=== PATIENT | female | born 1945 | race Caucasian/White ===

== ENCOUNTER 2017-02-18 12:41 | Emergency (ER) | payer MEDICARE, BC ==
[~2017-02-18] VITALS: Ht 160 cm; Wt 80.9 kg
[~2017-02-18 12:41] MED LIST: ALDACTONE 25MG25 M1 PO; ASPI325T6 PO; ASPIRIN 32325 MG/TAB PO; ASPIRIN 81M81 MG/TA2; ASPIRIN 81M81 MG/TA2 PO; BACTRIM 400 MG-1 TAB; BACTRIM DS 8001 TAB PO; CORDARONE200 MG/TAB PO; DECARA PO; DIOVAN HCT 25 M1 TAB PO; ELITE MAGNESIUM1 TAB PO; EPI EZ PEN1 MG/ML IM; EPIPEN1 MG/ML INJ; HCTZ 25MG TAB25 MG PO; HYZAAR 50-12.1 UDTAB PO; KLOR-CON 1010 MEQ PO; LASIX 20MG TABL20 MG PO; LASIX 40MG TABL40 MG PO; LIPITOR 10MG10 MG PO; LOPRESSOR 550 MG/TAB PO; LOPRESSOR100 MG PO; METOPROLOL100 MG PO; MICRO-K 1010 MEQ PO; NO HOME MEDICATIONS; NORCO 325 MG-51 TAB PO; NORCO 325 MG-7.1 TAB PO; NORVASC 10MG10 MG PO; PERCOCET 325 MG1 TA2 PO; POTASSIUM20 MEQ PO; PRADAXA 150MG150 MG PO; PREDNISONE20 MG PO; PRILOTC PO; PRINZIDE 12.5 M1 TAB PO; PROAIR HFA0.09 MG/AC IH; PULMICORT180 MCG/Ac IH; TYLENOL 325MG325 MG PO; VALIUM 2MG T2 MG/TAB PO; VASERETIC 10 MG1 TAB PO; VITAMIN D 50,1.25 MG PO; ZOCOR 40MG40 MG PO
[2017-02-18 12:42] VITALS: PULSE 71; TEMP 98.2
[2017-02-18] MEDS ORDERED: TOPROL XL 25MG25 MG PO (12:53)
[2017-02-18] MEDS ORDERED: NORCO 325 MG-51 TAB PO (14:10)
[2017-02-18 14:54] VITALS: BP 130/61
== END 2017-02-18 14:56 | disposition home or self-care (01) ==
LOC: COL.ER 12:41
DX: S80.02XA Contusion of left knee, initial encounter (principal); S86.912A Strain of unspecified muscle(s) and tendon(s) at lower leg level, left leg, initial encounter; W19.XXXA Unspecified fall, initial encounter; I48.91 Unspecified atrial fibrillation; I50.9 Heart failure, unspecified; Z87.891 Personal history of nicotine dependence

== ENCOUNTER 2018-02-12 12:04 | Day surgery (SDC) | payer MEDICARE, BC ==
[~2018-02-12] VITALS: Ht 160 cm; Wt 87.2 kg
[~2018-02-12 12:04] MED LIST changes: +TOPROL XL 25MG25 MG PO
[2018-02-12 12:24] VITALS: BP 119/69; PULSE 63; TEMP 98.2
[2018-02-12] MEDS ORDERED: K-TAB10 PO (12:53)
[2018-02-12] MEDS ORDERED: CORDARONE200 MG/TAB PO (12:54)
[2018-02-12] MEDS ORDERED: LOPRESSOR 225 MG/TAB PO (12:54)
[2018-02-12] MEDS ORDERED: LIPITOR 10MG10 MG PO (12:55)
[2018-02-12] MEDS ORDERED: LASIX 40MG TABL40 MG PO (12:55)
[2018-02-12] MEDS ORDERED: ALDACTONE 25MG25 M1 PO (12:56)
[2018-02-12] MEDS ORDERED: PRADAXA 150MG150 MG PO (12:56)
[2018-02-12] MEDS ORDERED: ASPIRIN 81M81 MG/TA2 PO (12:57)
[2018-02-12] MEDS ORDERED: CRANBERRY FRUI405 MG PO (12:58)
[2018-02-12] MEDS ORDERED: PULMICORT90 MCG/Act IH (12:58)
[2018-02-12] MEDS ORDERED: EPI-PEN JR0.5 MG/ML IM (13:00)
[2018-02-12 14:45] VITALS: BP 131/78; PULSE 59; TEMP 97.8
[2018-02-12 15:00] VITALS: BP 154/73; PULSE 57
[2018-02-12 15:15] VITALS: BP 174/77; PULSE 57
[2018-02-12 15:30] VITALS: BP 177/73; PULSE 58
== END 2018-02-12 15:44 | disposition home or self-care (01) ==
LOC: SDCO 12:04
DX: K63.5 Polyp of colon (principal); K29.30 Chronic superficial gastritis without bleeding; K31.7 Polyp of stomach and duodenum; I11.0 Hypertensive heart disease with heart failure; I50.9 Heart failure, unspecified; J45.909 Unspecified asthma, uncomplicated; E78.00 Pure hypercholesterolemia, unspecified; Z79.82 Long term (current) use of aspirin; I25.10 Atherosclerotic heart disease of native coronary artery without angina pectoris; Z87.891 Personal history of nicotine dependence; G47.33 Obstructive sleep apnea (adult) (pediatric); I27.20 Pulmonary hypertension, unspecified; E66.9 Obesity, unspecified; Z68.33 Body mass index [BMI] 33.0-33.9, adult; M19.90 Unspecified osteoarthritis, unspecified site; I07.1 Rheumatic tricuspid insufficiency; F41.9 Anxiety disorder, unspecified
CPT/HCPCS: OP; J2704; J7030

== ENCOUNTER → 2018-07-25 | Outpatient (CLI) | payer MEDICARE, BC ==
[~2018-07-25] MED LIST changes: +CRANBERRY FRUI405 MG PO; +EPI-PEN JR0.5 MG/ML IM; +K-TAB10 PO; +LOPRESSOR 225 MG/TAB PO; +PULMICORT90 MCG/Act IH
== END ==
LOC: COL.RAD 08:00
DX: M79.645 Pain in left finger(s) (principal); M25.532 Pain in left wrist
CPT/HCPCS: J3301; Q9967

== ENCOUNTER 2018-10-15 08:30 | Day surgery (SDC) | payer MEDICARE, BC ==
[~2018-10-15] VITALS: Ht 160 cm; Wt 85.4 kg
[2018-10-15 09:08] VITALS: BP 166/62; PULSE 67; TEMP 97.7
[2018-10-15 09:33] LABS: POTASSIUM 4.6 mmol/L (3.4-5.0)
[2018-10-15] MEDS ORDERED: CEPHALEXIN500 M1 PO (10:16)
[2018-10-15 10:17] LABS: THYROID STIMULATING HORMONE < 0.015 uIU/mL (0.465-4.680)
[2018-10-15 10:30] VITALS: BP 117/45; PULSE 66; TEMP 97.7
[2018-10-15 10:45] VITALS: BP 117/43; PULSE 64; TEMP 97.8
[2018-10-15 11:00] VITALS: BP 114/38; PULSE 65; TEMP 98
[2018-10-15 11:15] VITALS: BP 118/47; PULSE 64; TEMP 97.7
[2018-10-15 11:45] VITALS: BP 129/42; PULSE 64; TEMP 97.8
== END 2018-10-15 15:10 | disposition home or self-care (01) ==
LOC: COL.CAR 08:30
PROVIDERS: Internal Medicine Cardiovascular Disease
DX: I48.0 Paroxysmal atrial fibrillation (principal); I27.20 Pulmonary hypertension, unspecified; I25.10 Atherosclerotic heart disease of native coronary artery without angina pectoris; I10 Essential (primary) hypertension; E78.5 Hyperlipidemia, unspecified; G47.33 Obstructive sleep apnea (adult) (pediatric); F10.21 Alcohol dependence, in remission; J44.9 Chronic obstructive pulmonary disease, unspecified; R09.02 Hypoxemia; G90.01 Carotid sinus syncope; E66.9 Obesity, unspecified; I07.1 Rheumatic tricuspid insufficiency; I31.3 Pericardial effusion (noninflammatory); Z90.710 Acquired absence of both cervix and uterus; Z99.81 Dependence on supplemental oxygen; Z90.49 Acquired absence of other specified parts of digestive tract; Z88.1 Allergy status to other antibiotic agents; Z79.82 Long term (current) use of aspirin; Z80.9 Family history of malignant neoplasm, unspecified; Z82.49 Family history of ischemic heart disease and other diseases of the circulatory system; Z87.891 Personal history of nicotine dependence; Z68.31 Body mass index [BMI] 31.0-31.9, adult

== ENCOUNTER 2018-11-19 08:42 | Inpatient (IN) | payer MEDICARE, BC ==
[~2018-11-19 08:42] MED LIST changes: +CEPHALEXIN500 M1 PO
[2018-11-19] MEDS ORDERED: NATURAL IRON65 MG PO (09:10)
[2018-11-19] MEDS ORDERED: MULTIPLE VITAMI1 TA5 PO (09:11)
[2018-11-19] MEDS ORDERED: B COMPLEX & B121 TAB PO (09:11)
[2018-11-19 09:13] VITALS: BP 136/48; PULSE 72; TEMP 97.4
--- NOTE | 2018-11-19 10:00 | NUR ---
Arrived to the room at this time. No pain or chest pain at present. at the bedside. The patient was oriented to the room. Telemetry placed and IV started. EKG order called to Cardiopulmonary. Arrived to the room at this time.
--- NOTE | 2018-11-19 10:15 | NUR ---
Lab here for now orders. Vitals obtained and intial assessment completed.
[2018-11-19 11:01] LABS: BASO % 0.4 % (0.0-2.0); EOS # 0.1 (0.0-0.7); EOS % 0.6 % (0-4.0); GRAN # 7.3 (1.4-6.5); GRAN % 67.1 % (42.2-75.2); HEMATOCRIT 39.3 % (37.0-47.0); HEMOGLOBIN 13.3 g/dl (12.5-16.0); LYMPH # 2.4 (1.2-3.4); LYMPH % 21.9 % (20.0-51.0); MEAN CELL VOLUME 91 fl (80.0-100.0); MEAN CORPUSCULAR HEMOGLOBIN 31 pg (27.0-31.0); MEAN CORPUSCULAR HGB CONC 34 g/dl (33.0-37.0); MEAN PLATELET VOLUME 10.6 fl (7.4-10.4); MONO # 1.1 (0.1-0.6); MONO % 9.7 % (1.7-9.3); PLATELET COUNT 177 K/mm3 (130-400); RED BLOOD COUNT 4.32 M/mm3 (4.10-5.30); REDCELL DISTRIBUTION WIDTH-CV 13.9 % (11.5-14.5)
[2018-11-19 11:12] LABS: ALBUMIN 4.1 gm/dL (3.5-5.0); BILIRUBIN,TOTAL 1.1 mg/dL (0.0-1.0); CALCIUM 9.1 mg/dL (8.4-10.2); CREATININE, serum 0.7 mg/dL (0.52-1.25); INR 1.5 (0.8-3.0); MAGNESIUM 1.8 mg/dL (1.6-2.3); POTASSIUM 4.4 mmol/L (3.4-5.0); PROTHROMBIN TIME 17.4 SECONDS (9.7-12.8); TOTAL PROTEIN 7.1 gm/dL (6.4-8.2)
[2018-11-19 17:27] VITALS: BP 136/48; PULSE 72; TEMP 97.4
--- NOTE | 2018-11-19 19:11 | NUR ---
No change throughout the shift. The call light is in place. VANI Perales given report to resume care.
[2018-11-19 19:16] VITALS: BP 139/50; PULSE 60; TEMP 98.8
--- NOTE | 2018-11-19 22:00 | NUR ---
Resting in bed. Assessment complete. Lungs clear. Heart sounds normal. Bilateral lower leg edema +2. Right forearm abrasion, open to air, scabbed over. Reports from fence when letting dog out. Denies pain. Denies needs. Call light in reach.
[2018-11-19 22:58] VITALS: BP 114/63; PULSE 63; TEMP 98.3
--- NOTE | 2018-11-20 01:00 | NUR ---
Resting in bed. Call light in reach.
[2018-11-20 03:41] VITALS: BP 131/52; PULSE 63; TEMP 98.7
--- NOTE | 2018-11-20 06:02 | NUR ---
Resting in bed this AM. Uneventful night. Call light in reach.
[2018-11-20 07:21] VITALS: BP 145/49; PULSE 58; TEMP 98.2
[2018-11-20 07:51] LABS: BASO % 0.4 % (0.0-2.0); EOS # 0.1 (0.0-0.7); EOS % 1.2 % (0-4.0); GRAN # 4.5 (1.4-6.5); GRAN % 56.9 % (42.2-75.2); HEMATOCRIT 38.3 % (37.0-47.0); HEMOGLOBIN 12.2 g/dl (12.5-16.0); LYMPH # 2.6 (1.2-3.4); LYMPH % 32.7 % (20.0-51.0); MEAN CELL VOLUME 94 fl (80.0-100.0); MEAN CORPUSCULAR HEMOGLOBIN 30 pg (27.0-31.0); MEAN CORPUSCULAR HGB CONC 32 g/dl (33.0-37.0); MEAN PLATELET VOLUME 10.7 fl (7.4-10.4); MONO # 0.7 (0.1-0.6); MONO % 8.5 % (1.7-9.3); PLATELET COUNT 168 K/mm3 (130-400); RED BLOOD COUNT 4.07 M/mm3 (4.10-5.30); REDCELL DISTRIBUTION WIDTH-CV 13.9 % (11.5-14.5)
[2018-11-20 08:05] LABS: CALCIUM 9.1 mg/dL (8.4-10.2); CREATININE, serum 0.73 mg/dL (0.52-1.25); MAGNESIUM 1.9 mg/dL (1.6-2.3); POTASSIUM 3.9 mmol/L (3.4-5.0)
--- NOTE | 2018-11-20 10:04 | NUR ---
Patient is resting in bed, alert and talking on phone. Medications administered, requsted milk and crackers to take medications with. Did offer menu and offered assistance to order meal. Stated she could call for herself. Denies pain at this time.
--- NOTE | 2018-11-20 10:42 | NUR ---
FARIBA and SW student met with the patient to discuss discharge plan. The [place] [facility] with her ore trimmer, Oni. She reports independence with ADLs and does not use any DME. The patient's PCP is Dr. Heather Wick and she receives her medications at the [facility]. She reports no difficulties obtaining her meds. The patient does not have advanced directives and she was not interested in completing them at this time. The patient plans to return home with her ore trimmer upon discharge. No additional needs at this time.
[2018-11-20 10:53] VITALS: BP 130/48; PULSE 57; TEMP 97
--- NOTE | 2018-11-20 13:25 | NUR ---
First visit from the oil painter. No needs right now.
[2018-11-20 17:43] VITALS: BP 130/58; PULSE 64; TEMP 98.7
[2018-11-20 19:09] VITALS: BP 116/45; PULSE 69; TEMP 98.3
--- NOTE | 2018-11-20 19:19 | NUR ---
Patient had uneventful shift, no pain complaints, report given to VANI Briseno.
--- NOTE | 2018-11-20 19:42 | NUR ---
Sitting at bedside. Assessment complete. Lungs clear. Heart sounds normal. Bilateral lower leg edema +1. Pulses felt throughout. Abrasion to right forearm present. Scabbed over. Denies needs. Denies pain at this time. Call light in reach.
--- NOTE | 2018-11-20 23:27 | NUR ---
Resting in bed. Call light in reach.
[2018-11-20 23:57] VITALS: BP 119/63; PULSE 61; TEMP 99
[2018-11-21] VITALS (10 sets, daily range): BP systolic 106–147; BP diastolic 38–76; PULSE 59–92; TEMP 98.1–98.8
--- NOTE | 2018-11-21 04:31 | NUR ---
Resting in bed asleep. Call light in reach.
[2018-11-21 06:16] LABS: BASO % 0.4 % (0.0-2.0); EOS # 0.1 (0.0-0.7); EOS % 0.7 % (0-4.0); GRAN # 6.5 (1.4-6.5); GRAN % 66.3 % (42.2-75.2); HEMATOCRIT 39.8 % (37.0-47.0); LYMPH # 2.3 (1.2-3.4); LYMPH % 23.4 % (20.0-51.0); MEAN CELL VOLUME 93 fl (80.0-100.0); MEAN CORPUSCULAR HEMOGLOBIN 30 pg (27.0-31.0); MEAN CORPUSCULAR HGB CONC 33 g/dl (33.0-37.0); MEAN PLATELET VOLUME 10.7 fl (7.4-10.4); MONO # 0.9 (0.1-0.6); PLATELET COUNT 196 K/mm3 (130-400); RED BLOOD COUNT 4.27 M/mm3 (4.10-5.30); REDCELL DISTRIBUTION WIDTH-CV 13.8 % (11.5-14.5)
--- NOTE | 2018-11-21 06:19 | NUR ---
Uneventful night. Resting in bed this AM. Call light in reach.
[2018-11-21 06:33] LABS: CALCIUM 9.1 mg/dL (8.4-10.2); CREATININE, serum 0.77 mg/dL (0.52-1.25); MAGNESIUM 1.8 mg/dL (1.6-2.3); POTASSIUM 3.8 mmol/L (3.4-5.0)
[2018-11-21 08:31] LABS: INR 1.3 (0.8-3.0); PROTHROMBIN TIME 15.3 SECONDS (9.7-12.8)
--- NOTE | 2018-11-21 10:37 | NUR ---
Patient assessed. Denies having pain and discomfort. Voiced no needs. Held Aldactone per pre-op orders to hold diuretics the morning of cardioversion. Consent signed by patient. Voiced no questions or concerns at that time. Continues to be NPO for procedure. Daughter came in to visit after completing assessment. Given hospital gown to change into prior to procedure.
--- NOTE | 2018-11-21 13:00 | NUR ---
ALL MEDS GIVEN WITH VERBAL ORDER FROM MD. SEE MERGE FOR ADMIN TIMES.
--- NOTE | 2018-11-21 13:45 | NUR ---
Arrived back to floor at [facility] 1335. Sleepy at this time, but alert when spoken to. Denies having pain and discomfort at this time. Telemetry is connected.
[2018-11-21] MEDS ORDERED: BETAPACE 120MG120 MG PO (13:53)
--- NOTE | 2018-11-21 17:04 | NUR ---
Patient discharged at approximately 1640, accompanied by and daughter.
== END 2018-11-21 16:40 | disposition home or self-care (01) | DRG 310 ==
LOC: MEDICAL 08:42
PROVIDERS: Internal Medicine Cardiovascular Disease; ADMIT Internal Medicine Cardiovascular Disease
PROC: 5A2204Z Restoration of Cardiac Rhythm, Single (ICD-10-PCS; principal; 2018-11-21)
DX: I48.0 Paroxysmal atrial fibrillation (principal); I27.20 Pulmonary hypertension, unspecified; I10 Essential (primary) hypertension; I25.10 Atherosclerotic heart disease of native coronary artery without angina pectoris; G47.33 Obstructive sleep apnea (adult) (pediatric); I08.1 Rheumatic disorders of both mitral and tricuspid valves; Z85.828 Personal history of other malignant neoplasm of skin
CPT/HCPCS: J2250; J3010

== ENCOUNTER 2019-09-24 15:33 | Inpatient (IN) | payer MEDICARE, BC ==
[~2019-09-24] VITALS: Ht 154.9 cm; Wt 91.8 kg
[~2019-09-24 15:33] MED LIST changes: +B COMPLEX & B121 TAB PO; +BETAPACE 120MG120 MG PO; +MULTIPLE VITAMI1 TA5 PO; +NATURAL IRON65 MG PO; +TIKOSYN0.5 MG PO
[2019-09-24] MEDS ORDERED: ASPIRIN 81M81 MG/TA2 PO (15:53)
[2019-09-24] MEDS ORDERED: PULMICORT180 MCG/Ac IH (15:53)
[2019-09-24] MEDS ORDERED: CRANBERRY450 MG PO (15:54)
[2019-09-24 15:59] LABS: BASO # 0.1 (0.0-0.2); BASO % 0.5 % (0.0-2.0); EOS # 0.1 (0.0-0.7); EOS % 0.8 % (0-4.0); GRAN # 7.8 (1.4-6.5); GRAN % 70.3 % (42.2-75.2); HEMATOCRIT 41.8 % (37.0-47.0); LYMPH # 2.4 (1.2-3.4); LYMPH % 21.4 % (20.0-51.0); MEAN CELL VOLUME 99 fl (80.0-100.0); MEAN CORPUSCULAR HEMOGLOBIN 33 pg (27.0-31.0); MEAN CORPUSCULAR HGB CONC 34 g/dl (33.0-37.0); MEAN PLATELET VOLUME 10.2 fl (7.4-10.4); MONO # 0.7 (0.1-0.6); MONO % 6.6 % (1.7-9.3); PLATELET COUNT 182 K/mm3 (130-400); RED BLOOD COUNT 4.21 M/mm3 (4.10-5.30); REDCELL DISTRIBUTION WIDTH-CV 12.7 % (11.5-14.5)
[2019-09-24 16:13] LABS: ALANINE AMINOTRANSFERASE 39 U/L (9-52); ALBUMIN 4.5 gm/dL (3.5-5.0); ALKALINE PHOSPHATASE 128 U/L (50-136); ANION GAP 9 mmol/L (7-16); AST,SGOT 63 U/L (15-37); BILIRUBIN,TOTAL 0.8 mg/dL (0.0-1.0); BLOOD UREA NITROGEN 14 mg/dL (7-17); CALCIUM 9.1 mg/dL (8.4-10.2); CARBON DIOXIDE 26 mmol/L (22-30); CHLORIDE 103 mmol/L (98-107); CREATININE, serum 0.82 (0.52-1.25); GLUCOSE 99 mg/dL (74-106); MAGNESIUM 1.9 mg/dL (1.6-2.3); POTASSIUM 4.5 mmol/L (3.4-5.0); SODIUM 138 mmol/L (137-145); TOTAL PROTEIN 7.8 gm/dL (6.4-8.2)
[2019-09-24 16:27] LABS: TROPONIN-I < 0.012 ng/mL (0.000-0.035)
[2019-09-24 19:57] VITALS: BP 148/63; PULSE 79; TEMP 97.5
[2019-09-24] MEDS ORDERED: MAGNESIUM500 MG PO (22:13)
--- NOTE | 2019-09-24 22:39 | NUR ---
Assessment complete. Alert and oriented. Verbal, ambulatory, independent to self care. Denies any pain, discomfort or SOB at this time. Tele monitor in place, leads checked. INT to LAC patent, flushed, dressing with small amount of blood around hub, dressing changed, CDI. States on RA during the day and wears 3LO2 NC during sleep. Medications administered as ordered. Needs met. Call light within reach.
[2019-09-24 23:46] VITALS: BP 148/53; PULSE 88
[2019-09-25] VITALS (8 sets, daily range): BP systolic 99–135; BP diastolic 47–83; PULSE 64–112; TEMP 97.4–98.5
[2019-09-25 01:12] LABS: COLLECTION METHOD CLEAN CATCH
[2019-09-25 01:17] LABS: MUCOUS Present /lpf; PH 6 (5-8); SQUAMOUS EPITHELIAL 0-2 /hpf; URINE APPEARANCE Clear; URINE BACTERIA Rare /hpf; URINE BILIRUBIN Negative (NEGATIVE); URINE BLOOD Negative (NEGATIVE); URINE COLOR Yellow; URINE GLUCOSE Negative (NEGATIVE); URINE KETONE Negative (NEGATIVE); URINE LEUKOCYTE ESTERASE Trace (NEGATIVE); URINE NITRATE Negative (NEGATIVE); URINE PROTEIN(semi-quant) Negative (NEGATIVE); URINE RBC 0-2 /hpf; URINE UROBILINOGEN Negative (NEGATIVE)
--- NOTE | 2019-09-25 05:20 | NUR ---
Pt uneventful during this shift. call light within reach.
--- NOTE | 2019-09-25 07:08 | NUR ---
Report given to VANI Morocho.
[2019-09-25 09:13] LABS: BASO % 0.6 % (0.0-2.0); EOS # 0.1 (0.0-0.7); EOS % 1.4 % (0-4.0); GRAN # 4.8 (1.4-6.5); GRAN % 69.1 % (42.2-75.2); HEMATOCRIT 40.1 % (37.0-47.0); HEMOGLOBIN 13.1 g/dl (12.5-16.0); LYMPH # 1.5 (1.2-3.4); LYMPH % 21.9 % (20.0-51.0); MEAN CELL VOLUME 101 fl (80.0-100.0); MEAN CORPUSCULAR HEMOGLOBIN 33 pg (27.0-31.0); MEAN CORPUSCULAR HGB CONC 33 g/dl (33.0-37.0); MEAN PLATELET VOLUME 10.3 fl (7.4-10.4); MONO # 0.5 (0.1-0.6); MONO % 6.6 % (1.7-9.3); PLATELET COUNT 143 K/mm3 (130-400); RED BLOOD COUNT 3.96 M/mm3 (4.10-5.30); REDCELL DISTRIBUTION WIDTH-CV 12.8 % (11.5-14.5)
[2019-09-25 09:23] LABS: CALCIUM 8.7 mg/dL (8.4-10.2); CREATININE, serum 0.74 (0.52-1.25); POTASSIUM 4.2 mmol/L (3.4-5.0)
--- NOTE | 2019-09-25 10:50 | NUR ---
Patient is awake sitting on side of the bed. Is alert and oriented. Denies having any pain. Respirations are even and nonlabored. Call light and personal items are within reach.
--- NOTE | 2019-09-25 18:32 | NUR ---
Patient has been resting in bed. Son is at bedside. Denies pain. Call light and personal items are within reach.
--- NOTE | 2019-09-25 20:00 | NUR ---
Shift assessment complete. Patient in chair. Denies pain. States she has numbness/tingling in left foot. States it is chronic, and that her DrYokasta is aware. NSR on tele. IV in left arm flushed with NS, pt tolerated well. Denies further needs at this time. Will continue to monitor.
[2019-09-26] VITALS (7 sets, daily range): BP systolic 106–160; BP diastolic 31–76; PULSE 65–90; TEMP 97.2–98.2
--- NOTE | 2019-09-26 04:59 | NUR ---
Patient in bed, sleeping. Appears comfortable. Will continue to monitor.
--- NOTE | 2019-09-26 06:09 | NUR ---
Per monitor room tech, tele showing what appears to be Torsades, which according to the sterile supply technician, it happened very fast. Patient in bed, awake. States she feels fine. VS stable. Notified SAM Rosales. EKG and Mag level ordered. Per SAM Rosales, RN to call cardiology cardiology clinical consultant for further orders.
--- NOTE | 2019-09-26 06:31 | NUR ---
Updated Dr. Mejia on run of torsades on tele. Order to d/c tikosyn. SAM Rosales ordered 2g Mag IV. Mag being replaced now. Morning labs being drawn STAT. Per Dr. Spencer, place defib pads on, and move pt to the ICU. SAM Rosales notified by Eligio Mckeon RN. SAM Rosales at bedside, and will place transfer orders.
--- NOTE | 2019-09-26 06:37 | NUR ---
Dr. Spencer called this RN after viewing the patient's tele strip showing Torsade's and stated that "It is artifact. That patient can stay on the floor." Charge and warehouse packaging supervisor notified.
--- NOTE | 2019-09-26 06:41 | NUR ---
Per Dr. Spencer, he believes the "torsades" that was seen on the monitor was artifact. Order to restart tikosyn. Connie updated, tikosyn reordered. Patient updated. Mag IV infusing. Ok per Dr. Spencer and Connie, STAB SETTER AND DRILLER.
[2019-09-26 06:49] LABS: BASO # 0.1 (0.0-0.2); BASO % 0.6 % (0.0-2.0); EOS # 0.1 (0.0-0.7); EOS % 1.6 % (0-4.0); GRAN # 5.8 (1.4-6.5); GRAN % 65.2 % (42.2-75.2); HEMATOCRIT 44.5 % (37.0-47.0); HEMOGLOBIN 14.6 g/dl (12.5-16.0); LYMPH # 2.3 (1.2-3.4); LYMPH % 25.7 % (20.0-51.0); MEAN CELL VOLUME 101 fl (80.0-100.0); MEAN CORPUSCULAR HEMOGLOBIN 33 pg (27.0-31.0); MEAN CORPUSCULAR HGB CONC 33 g/dl (33.0-37.0); MEAN PLATELET VOLUME 10.4 fl (7.4-10.4); MONO # 0.6 (0.1-0.6); MONO % 6.7 % (1.7-9.3); PLATELET COUNT 178 K/mm3 (130-400); RED BLOOD COUNT 4.39 M/mm3 (4.10-5.30); REDCELL DISTRIBUTION WIDTH-CV 12.7 % (11.5-14.5)
[2019-09-26 07:01] LABS: CALCIUM 9.3 mg/dL (8.4-10.2); CREATININE, serum 0.82 (0.52-1.25); MAGNESIUM 1.9 mg/dL (1.6-2.3); POTASSIUM 4.2 mmol/L (3.4-5.0)
--- NOTE | 2019-09-26 08:00 | NUR ---
Patient is awake and alert sitting up in bed. Denies having pain. I curious regarding the time of her cardioversion, will contact provider regarding this. Did take medications with as little fluid as possible. Did decline to take diuretics this morning. Respirations are even and nonlabored. Call light and personal items are within reach.
--- NOTE | 2019-09-26 09:05 | NUR ---
SW met with the patient to discuss discharge plan. The patient [place] of [place] with her coordinate measuring machine programmer, Oni Tate (ph#[phone]). She reports independence with ADLs and has a cane, walker, wheelchair, and nocturnal oxygen from [facility]. The patient's PCP is was Dr. Heather Wick, but she states that she believes she was switched to Dr. Muna Lowery. She receives her medications at [facility] and she reports no difficulties obtaining her meds. The patient does not have advanced directives and she was not interested in completing them at this time. She states her next of kin would be her daughter, Giovanna Pham (ph#[phone]). The patient plans to return home with her coordinate measuring machine programmer upon discharge. No additional needs at this time.
--- NOTE | 2019-09-26 09:56 | NUR ---
Patient arrives to [facility] for cardioversion with anesthesia via WC with RN from medical floor. A/Ox4, transfers self to bed. Verified name and . Consent signed and on chart. Monitors applied. 1000 Anesthesia here and ready for procedure. Dr. Wayne notified. 1007 Dr. Wayne at bedside 1008 Time out complete, all parties in agreement. Patient identifies self and voices ok. 1010 Defib with 200 Joules x1. Converts to SR per Dr. Wayne.
--- NOTE | 2019-09-26 10:53 | NUR ---
Report called to Bailee LUDWIG. Will transfer patient back to her room shortly. 1105 Transfers self to wheelchair indepently. Transferred back to room 355 with S\O at side. Up to bathroom on arrival to room. Bailee LUDWIG aware patient back.
--- NOTE | 2019-09-26 11:15 | NUR ---
0935 PATIENT TRANSPORTED TO [facility] 15 FOR CARDIOVERSION. CONSENT OBTAINED FOR PROCEDURE. PATIENT HAS RETURNED TO FLOOR AT 1100 VIA WHEELCHAIR AND IS AWAKE AND ALERT IN ROOM. PROCEDURE REPORTED TO BE SUCCESSFUL AND PATIENT IS CURRENTLY IN NSR. WAS ASSISTED TO THE RESTROOM AND RETURNED TO BED INDEPENDENTLY. GAIT IS STEADY. CALL LIGHT AND PERSONAL ITEMS ARE WITHIN REACH.
--- NOTE | 2019-09-26 18:22 | NUR ---
Patient discharging home at this time. Discharge instructions taken to patient and she declined to review them. Personal belongings sent with patient. She states she has an appointment with her time study technologist at early next week. Patient left via private vehicle.
== END 2019-09-26 18:24 | disposition home or self-care (01) | DRG 310 ==
LOC: COL.ER 15:33 → MEDICAL 19:21
PROVIDERS: Emergency Medicine; Nurse Practitioner Family; ADMIT Student in an Organized Health Care Education/Training Program
PROC: 5A2204Z Restoration of Cardiac Rhythm, Single (ICD-10-PCS; principal; 2019-09-24)
DX: I48.0 Paroxysmal atrial fibrillation (principal); I25.10 Atherosclerotic heart disease of native coronary artery without angina pectoris; I10 Essential (primary) hypertension; I27.20 Pulmonary hypertension, unspecified; E78.5 Hyperlipidemia, unspecified; I65.29 Occlusion and stenosis of unspecified carotid artery; I07.1 Rheumatic tricuspid insufficiency; J44.9 Chronic obstructive pulmonary disease, unspecified; E66.9 Obesity, unspecified; G47.33 Obstructive sleep apnea (adult) (pediatric); Z79.01 Long term (current) use of anticoagulants; Z90.710 Acquired absence of both cervix and uterus; Z79.82 Long term (current) use of aspirin; Z90.49 Acquired absence of other specified parts of digestive tract; Z87.891 Personal history of nicotine dependence
CPT/HCPCS: 99222-AI; J2704; J3475

== ENCOUNTER 2019-12-01 10:41 | Day surgery (SDC) | payer MEDICARE, BC ==
[~2019-12-01] VITALS: Ht 154.9 cm; Wt 91.9 kg
[~2019-12-01 10:41] MED LIST changes: +CRANBERRY450 MG PO; +MAGNESIUM500 MG PO
--- NOTE | 2019-12-01 10:47 | NUR ---
PATIENT ARRIVES TO [facility]. SHE IS SETTLED AND CHANGED. DR. MAURO AWARE OF ARRIVAL. HE WILL BE IN SOON SO SPEAK TO HER.
[2019-12-01 11:00] VITALS: BP 134/56; PULSE 69; TEMP 97.9
[2019-12-01 11:03] VITALS: BP 134/56; PULSE 69; TEMP 97.9
--- NOTE | 2019-12-01 11:30 | NUR ---
PATIENT PREPPED FOR CARDIOVERSION. IV PLACED TO LEFT FOREARM. EKG COMPLETED. CONSENT SIGNED. DR. MAURO HAS ANSWERED ALL QUESTIONS.
[2019-12-01 11:33] LABS: INR 1.2 (0.8-3.0); PROTHROMBIN TIME 13.7 SECONDS (9.7-12.8)
[2019-12-01 11:36] LABS: PARTIAL THROMBOPLASTIN TIME 56.2 SECONDS (26.0-37.0)
[2019-12-01 11:42] LABS: HEMATOCRIT 41.6 % (37.0-47.0); HEMOGLOBIN 13.7 g/dl (12.5-16.0); MEAN CELL VOLUME 97 fl (80.0-100.0); MEAN CORPUSCULAR HEMOGLOBIN 32 pg (27.0-31.0); MEAN CORPUSCULAR HGB CONC 33 g/dl (33.0-37.0); MEAN PLATELET VOLUME 10.4 fl (7.4-10.4); PLATELET COUNT 189 K/mm3 (130-400); RED BLOOD COUNT 4.29 M/mm3 (4.10-5.30); REDCELL DISTRIBUTION WIDTH-CV 12.9 % (11.5-14.5)
[2019-12-01 11:57] LABS: CALCIUM 9.3 mg/dL (8.4-10.2); CREATININE, serum 0.71 (0.52-1.25); POTASSIUM 4.2 mmol/L (3.4-5.0)
--- NOTE | 2019-12-01 12:16 | NUR ---
PATIENT SHOCKED ONCE WITH 200 JOULES FOR CARDIOVERSION. SINUS RHYTHM AFTER CARDIOVERSION COMPLETE
[2019-12-01 12:28] LABS: THYROID STIMULATING HORMONE 2.5 uIU/mL (0.465-4.680)
[2019-12-01 12:35] VITALS: BP 116/61; PULSE 68
--- NOTE | 2019-12-01 12:35 | NUR ---
CARDIOVERSION COMPLETE. PATIENT AWAKE AND TALKING. VS WNL. IN SR ON TELEMETRY. WILL CONTINUE TO MONITOR.
[2019-12-01 12:50] VITALS: BP 116/52; PULSE 64
[2019-12-01 13:05] VITALS: BP 105/49; PULSE 63
[2019-12-01 13:20] VITALS: BP 118/54; PULSE 66
--- NOTE | 2019-12-01 14:09 | NUR ---
DISCHARGE PACKET AND FOLLOW UP APPOINTMENT REVIEWED WITH THE PATIENT. SHE IS INSTRUCTED NOT TO DRIVE FOR 24 HOURS D/T RECEIVING SEDATION FOR CARDIOVERSION. PATIENT VERBALIZES UNDERSTANDING. PATIENT TAKEN OUT TO CAR IN WHEELCHAIR WITH S/O TO DRIVE HER HOME.
== END 2019-12-01 14:00 | disposition home or self-care (01) ==
LOC: COL.CAR 10:41
PROVIDERS: Internal Medicine Cardiovascular Disease
DX: I48.0 Paroxysmal atrial fibrillation (principal); I10 Essential (primary) hypertension; I27.20 Pulmonary hypertension, unspecified; I25.10 Atherosclerotic heart disease of native coronary artery without angina pectoris; I07.1 Rheumatic tricuspid insufficiency; I65.21 Occlusion and stenosis of right carotid artery; G47.33 Obstructive sleep apnea (adult) (pediatric); J44.9 Chronic obstructive pulmonary disease, unspecified; E66.9 Obesity, unspecified; E78.2 Mixed hyperlipidemia; M19.90 Unspecified osteoarthritis, unspecified site; F41.9 Anxiety disorder, unspecified; Z79.01 Long term (current) use of anticoagulants; Z95.818 Presence of other cardiac implants and grafts; Z99.89 Dependence on other enabling machines and devices; Z79.82 Long term (current) use of aspirin; Z79.899 Other long term (current) drug therapy; Z85.038 Personal history of other malignant neoplasm of large intestine; Z90.710 Acquired absence of both cervix and uterus; Z68.34 Body mass index [BMI] 34.0-34.9, adult; Z90.49 Acquired absence of other specified parts of digestive tract; Z88.1 Allergy status to other antibiotic agents; Z82.49 Family history of ischemic heart disease and other diseases of the circulatory system; Z80.9 Family history of malignant neoplasm, unspecified
CPT/HCPCS: J2704; J7030

== ENCOUNTER → 2019-12-23 | Outpatient (CLI) | payer MEDICARE, BC | LOC: COL.RAD 13:36 | DX: M79.645 Pain in left finger(s) (principal) | CPT/HCPCS: J3301; Q9967 ==

== ENCOUNTER 2020-03-05 07:36 | Day surgery (SDC) | payer MEDICARE, BC ==
[~2020-03-05] VITALS: Ht 155 cm; Wt 90.0 kg
[2020-03-05 08:40] LABS: HEMATOCRIT 38.2 % (37.0-47.0); HEMOGLOBIN 12.7 g/dl (12.5-16.0); MEAN CELL VOLUME 94 fl (80.0-100.0); MEAN CORPUSCULAR HEMOGLOBIN 31 pg (27.0-31.0); MEAN CORPUSCULAR HGB CONC 33 g/dl (33.0-37.0); MEAN PLATELET VOLUME 10.4 fl (7.4-10.4); PLATELET COUNT 202 K/mm3 (130-400); RED BLOOD COUNT 4.06 M/mm3 (4.10-5.30); REDCELL DISTRIBUTION WIDTH-CV 13.2 % (11.5-14.5)
[2020-03-05] MEDS ORDERED: VITAMINC500CH (08:43)
[2020-03-05] MEDS ORDERED: VITAMIND3 5000 PO (08:44)
[2020-03-05 08:55] LABS: INR 1.3 (0.8-3.0); PROTHROMBIN TIME 14.5 SECONDS (9.7-12.8)
[2020-03-05 08:56] LABS: PARTIAL THROMBOPLASTIN TIME 69.9 SECONDS (26.0-37.0)
[2020-03-05 09:01] LABS: MAGNESIUM 2.1 mg/dL (1.6-2.3)
--- NOTE | 2020-03-05 09:30 | NUR ---
DR MAURO INTO SEE PT, PROCEDURE WAS CANCELLED. REVIEWED WITH PT DISCHARGE INST. ON NEXT APPT, NO NEW MED CHANGES WITH VERBAL UNDERSTANDING. IV D'CD INTACT. PT IS UP IN ROOM WAITING ON RIDE
[2020-03-05 09:44] LABS: THYROID STIMULATING HORMONE 3.34 uIU/mL (0.465-4.680)
[2020-03-05 09:51] VITALS: BP 123/52; PULSE 65; TEMP 97.7
== END 2020-03-05 10:00 | disposition home or self-care (01) ==
LOC: COL.CAR 07:36
PROVIDERS: Internal Medicine Cardiovascular Disease
DX: I48.0 Paroxysmal atrial fibrillation (principal); F10.20 Alcohol dependence, uncomplicated; I25.10 Atherosclerotic heart disease of native coronary artery without angina pectoris; J44.9 Chronic obstructive pulmonary disease, unspecified; I10 Essential (primary) hypertension; E66.9 Obesity, unspecified; G47.33 Obstructive sleep apnea (adult) (pediatric); R09.02 Hypoxemia; E78.2 Mixed hyperlipidemia; I27.20 Pulmonary hypertension, unspecified; I07.1 Rheumatic tricuspid insufficiency; F41.9 Anxiety disorder, unspecified; I31.3 Pericardial effusion (noninflammatory); M19.90 Unspecified osteoarthritis, unspecified site; Z90.49 Acquired absence of other specified parts of digestive tract; Z90.710 Acquired absence of both cervix and uterus; Z88.1 Allergy status to other antibiotic agents; Z91.048 Other nonmedicinal substance allergy status; Z79.82 Long term (current) use of aspirin; Z79.01 Long term (current) use of anticoagulants; Z87.891 Personal history of nicotine dependence; Z85.038 Personal history of other malignant neoplasm of large intestine
CPT/HCPCS: J7030

== ENCOUNTER → 2020-05-10 | Outpatient (CLI) | payer MEDICARE, BC ==
[~2020-05-10] MED LIST changes: +VITAMINC500CH; +VITAMIND3 5000 PO
== END ==
LOC: MC.RAD 11:15
DX: N63.10 Unspecified lump in the right breast, unspecified quadrant (principal); N63.21 Unspecified lump in the left breast, upper outer quadrant

== ENCOUNTER → 2020-05-12 | Outpatient (CLI) | payer MEDICARE, BC | LOC: MC.RAD 10:19 | DX: N63.20 Unspecified lump in the left breast, unspecified quadrant (principal); Z98.82 Breast implant status | CPT/HCPCS: 30634 ==

== ENCOUNTER 2020-06-22 06:49 | Day surgery (SDC) | payer MEDICARE, BC ==
[2020-06-22] VITALS (9 sets, daily range): BP systolic 119–159; BP diastolic 45–73; PULSE 57–69; TEMP 97.3–97.8
[~2020-06-22] VITALS: Ht 157.5 cm; Wt 91.1 kg
[2020-06-22] MEDS ORDERED: CRANBERRY450 MG PO (08:38)
[2020-06-22] MEDS ORDERED: B-121000 MCG PO (08:42)
[2020-06-22] MEDS ORDERED: NORCO 325 MG-51 TAB PO (13:12)
== END 2020-06-22 17:55 | disposition home or self-care (01) ==
LOC: SDCO 06:49
DX: C50.412 Malignant neoplasm of upper-outer quadrant of left female breast (principal); C77.3 Secondary and unspecified malignant neoplasm of axilla and upper limb lymph nodes; Z17.0 Estrogen receptor positive status [ER+]; I48.0 Paroxysmal atrial fibrillation; D24.1 Benign neoplasm of right breast; E78.5 Hyperlipidemia, unspecified; I27.20 Pulmonary hypertension, unspecified; G47.33 Obstructive sleep apnea (adult) (pediatric); I25.10 Atherosclerotic heart disease of native coronary artery without angina pectoris; I13.0 Hypertensive heart and chronic kidney disease with heart failure and stage 1 through stage 4 chronic kidney disease, or unspecified chronic kidney disease; I50.9 Heart failure, unspecified; N18.3 Chronic kidney disease, stage 3 (moderate); J44.9 Chronic obstructive pulmonary disease, unspecified; E87.1 Hypo-osmolality and hyponatremia; E83.42 Hypomagnesemia; E11.9 Type 2 diabetes mellitus without complications; M19.90 Unspecified osteoarthritis, unspecified site; F41.9 Anxiety disorder, unspecified; Z79.82 Long term (current) use of aspirin; Z79.899 Other long term (current) drug therapy; Z90.710 Acquired absence of both cervix and uterus; Z90.49 Acquired absence of other specified parts of digestive tract; Z86.73 Personal history of transient ischemic attack (TIA), and cerebral infarction without residual deficits; Z20.828 Contact with and (suspected) exposure to other viral communicable diseases; Z85.828 Personal history of other malignant neoplasm of skin
CPT/HCPCS: A9541; J0690; J1100; J2270; J2405; J2704; J3010; J7120

== ENCOUNTER 2020-07-22 06:59 | Day surgery (SDC) | payer MEDICARE, BC ==
[2020-07-22] VITALS (7 sets, daily range): BP systolic 97–127; BP diastolic 43–90; PULSE 61–74; TEMP 98.6
[~2020-07-22] VITALS: Ht 157.5 cm; Wt 91.4 kg
[~2020-07-22 06:59] MED LIST changes: +B-121000 MCG PO
[2020-07-22 07:53] LABS: HEMATOCRIT 41.7 % (37.0-47.0); HEMOGLOBIN 13.9 g/dl (12.5-16.0); MEAN CELL VOLUME 91 fl (80.0-100.0); MEAN CORPUSCULAR HEMOGLOBIN 30 pg (27.0-31.0); MEAN CORPUSCULAR HGB CONC 33 g/dl (33.0-37.0); MEAN PLATELET VOLUME 10.5 fl (7.4-10.4); PLATELET COUNT 231 K/mm3 (130-400); RED BLOOD COUNT 4.57 M/mm3 (4.10-5.30)
[2020-07-22 08:03] LABS: INR 1.2 (0.8-3.0); PROTHROMBIN TIME 13.6 SECONDS (9.7-12.8)
[2020-07-22 08:03] LABS: CALCIUM 9.4 mg/dL (8.4-10.2); CREATININE, serum 0.96 (0.52-1.25); POTASSIUM 4.1 mmol/L (3.4-5.0)
[2020-07-22 08:06] LABS: PARTIAL THROMBOPLASTIN TIME 55.1 SECONDS (26.0-37.0)
[2020-07-22] MEDS ORDERED: PRADAXA 150MG150 MG PO (08:15)
[2020-07-22] MEDS ORDERED: TIKOSYN0.5 MG PO (08:18)
[2020-07-22] MEDS ORDERED: VITAMIN C500 MG PO (08:31)
[2020-07-22] MEDS ORDERED: MAG-OX 400400 MG/TAB PO (08:32)
[2020-07-22] MEDS ORDERED: TYLENOL 500MG500 MG PO (08:33)
[2020-07-22] MEDS ORDERED: PROAIR HFA0.09 MG/AC IH (08:33)
[2020-07-22] MEDS ORDERED: ARIMIDEX1 MG PO (08:34)
[2020-07-22 08:37] LABS: THYROID STIMULATING HORMONE 4.45 uIU/mL (0.465-4.680)
--- NOTE | 2020-07-22 10:50 | NUR ---
Discharge instructions given to pt.Pt verbalizes understanding.INT removed,catheter tip intact.Pt escorted out via wheelchair by this nurse.
== END 2020-07-22 11:44 | disposition home or self-care (01) ==
LOC: COL.CAR 06:59
PROVIDERS: Internal Medicine Cardiovascular Disease
DX: I48.0 Paroxysmal atrial fibrillation (principal); I27.20 Pulmonary hypertension, unspecified; Z79.01 Long term (current) use of anticoagulants; I25.10 Atherosclerotic heart disease of native coronary artery without angina pectoris; I65.21 Occlusion and stenosis of right carotid artery; I10 Essential (primary) hypertension; E78.2 Mixed hyperlipidemia; G47.33 Obstructive sleep apnea (adult) (pediatric); E66.9 Obesity, unspecified; Z68.36 Body mass index [BMI] 36.0-36.9, adult; F10.20 Alcohol dependence, uncomplicated; Z98.62 Peripheral vascular angioplasty status; Z86.79 Personal history of other diseases of the circulatory system; Z20.828 Contact with and (suspected) exposure to other viral communicable diseases; Z99.81 Dependence on supplemental oxygen; Z90.710 Acquired absence of both cervix and uterus; Z90.49 Acquired absence of other specified parts of digestive tract; Z88.1 Allergy status to other antibiotic agents; Z79.899 Other long term (current) drug therapy; Z79.82 Long term (current) use of aspirin; Z87.891 Personal history of nicotine dependence; Z95.818 Presence of other cardiac implants and grafts
CPT/HCPCS: J2704; J7030

== ENCOUNTER → 2020-10-15 | Day surgery (SDC) | payer MEDICARE, BC ==
[~2020-10-15] MED LIST changes: +ARIMIDEX1 MG PO; +MAG-OX 400400 MG/TAB PO; +TYLENOL 500MG500 MG PO; +VITAMIN C500 MG PO
== END ==
LOC: COL.CAR 08:00
DX: I48.91 Unspecified atrial fibrillation (principal); Z53.8 Procedure and treatment not carried out for other reasons

== ENCOUNTER → 2021-01-10 | Outpatient (CLI) | payer MEDICARE, BC ==
[~2021-01-10] MED LIST changes: +COMPLETE MULTI1 TAB PO; +ELDERBERRY PO; +EPIPEN 2-PAK1 MG/ML IM; +FLONASE NASAL S16 GM NS; +MASON NATURAL2000 IU PO; +SELENIUM200 MC5 PO; -TYLENOL 500MG500 MG PO; -VITAMIND3 5000 PO; +VTAMINC250TA PO; +ZINC LOZENGES1 LOZ PO
== END ==
LOC: MC.RAD 12:56
DX: Z98.890 Other specified postprocedural states (principal); Z85.3 Personal history of malignant neoplasm of breast

== ENCOUNTER 2021-02-18 06:50 | Day surgery (SDC) | payer MEDICARE, BC ==
[~2021-02-18] VITALS: Ht 157.5 cm; Wt 93.3 kg
[~2021-02-18 06:50] MED LIST changes: -COMPLETE MULTI1 TAB PO; -ELDERBERRY PO; -EPIPEN 2-PAK1 MG/ML IM; -FLONASE NASAL S16 GM NS; -SELENIUM200 MC5 PO; -VTAMINC250TA PO; -ZINC LOZENGES1 LOZ PO
[2021-02-18 08:13] VITALS: BP 120/56; PULSE 68; TEMP 98.7
[2021-02-18] MEDS ORDERED: EPIPEN 2-PAK1 MG/ML IM (08:41)
[2021-02-18] MEDS ORDERED: SELENIUM200 MC5 PO (08:42)
--- NOTE | 2021-02-18 09:09 | NUR ---
Per report pt in SR.Cardioversion cancelled
--- NOTE | 2021-02-18 09:17 | NUR ---
Discharge instructions given to pt.Pt verbalizes understanding.Pt escorted out by this nurse.
== END 2021-02-18 09:19 | disposition home or self-care (01) ==
LOC: COL.CAR 06:50
DX: I48.91 Unspecified atrial fibrillation (principal); Z88.1 Allergy status to other antibiotic agents; J44.9 Chronic obstructive pulmonary disease, unspecified; I25.10 Atherosclerotic heart disease of native coronary artery without angina pectoris; I11.0 Hypertensive heart disease with heart failure; I50.9 Heart failure, unspecified; G47.33 Obstructive sleep apnea (adult) (pediatric); F41.9 Anxiety disorder, unspecified; M19.90 Unspecified osteoarthritis, unspecified site; N18.30 Chronic kidney disease, stage 3 unspecified; Z85.3 Personal history of malignant neoplasm of breast; Z85.038 Personal history of other malignant neoplasm of large intestine; Z53.8 Procedure and treatment not carried out for other reasons
CPT/HCPCS: J2704

== ENCOUNTER → 2021-07-15 | Outpatient (CLI) | payer MEDICARE, BC ==
[~2021-07-15] MED LIST changes: +COMPLETE MULTI1 TAB PO; +ELDERBERRY PO; +EPIPEN 2-PAK1 MG/ML IM; +FLONASE NASAL S16 GM NS; +SELENIUM200 MC5 PO; +VTAMINC250TA PO; +ZINC LOZENGES1 LOZ PO
== END ==
LOC: MC.RAD 14:00
DX: C50.412 Malignant neoplasm of upper-outer quadrant of left female breast (principal); C73 Malignant neoplasm of thyroid gland; Z98.890 Other specified postprocedural states

== ENCOUNTER 2021-08-22 10:37 | Day surgery (SDC) | payer MEDICARE, BC ==
[~2021-08-22] VITALS: Ht 157.6 cm; Wt 94.3 kg
[~2021-08-22 10:37] MED LIST changes: -COMPLETE MULTI1 TAB PO; -ELDERBERRY PO; -FLONASE NASAL S16 GM NS; -VTAMINC250TA PO; -ZINC LOZENGES1 LOZ PO
[2021-08-22 11:49] LABS: HEMATOCRIT 43.8 % (37.0-47.0); MEAN CELL VOLUME 101 fl (80.0-100.0); MEAN CORPUSCULAR HEMOGLOBIN 32 pg (27.0-31.0); MEAN CORPUSCULAR HGB CONC 32 g/dl (33.0-37.0); MEAN PLATELET VOLUME 9.4 fl (7.4-10.4); PLATELET COUNT 187 K/mm3 (130-400); RED BLOOD COUNT 4.36 M/mm3 (4.10-5.30); REDCELL DISTRIBUTION WIDTH-CV 14.9 % (11.5-14.5)
[2021-08-22 11:57] VITALS: BP 141/62; PULSE 67; TEMP 98.1
[2021-08-22 11:58] LABS: INR 1.3 (0.8-3.0); PROTHROMBIN TIME 14.4 SECONDS (9.7-12.8)
[2021-08-22 12:01] LABS: PARTIAL THROMBOPLASTIN TIME 54.4 SECONDS (26.0-37.0)
[2021-08-22 12:25] LABS: CREATININE, serum 0.92 mg/dL (0.57-1.11); MAGNESIUM 2.3 mg/dL (1.6-2.6)
[2021-08-22] MEDS ORDERED: VTAMINC250TA PO (12:30)
[2021-08-22] MEDS ORDERED: CORDARONE200 MG/TAB PO ×2 (12:30→12:48)
[2021-08-22 12:35] LABS: POTASSIUM 4.5 mmol/L (3.5-4.5)
[2021-08-22] MEDS ORDERED: ZINC LOZENGES1 LOZ PO (12:35)
[2021-08-22] MEDS ORDERED: ELDERBERRY PO (12:36)
[2021-08-22] MEDS ORDERED: COMPLETE MULTI1 TAB PO (12:37)
[2021-08-22] MEDS ORDERED: FLONASE NASAL S16 GM NS (12:38)
[2021-08-22 13:13] LABS: THYROID STIMULATING HORMONE 2.322 uIU/mL (0.350-4.940)
[2021-08-22 13:15] VITALS: BP 117/47; PULSE 64
[2021-08-22 13:30] VITALS: BP 120/45; PULSE 66
[2021-08-22 13:45] VITALS: BP 123/34; PULSE 64
[2021-08-22 14:00] VITALS: BP 129/44; PULSE 60
--- NOTE | 2021-08-22 14:20 | NUR ---
Pt care was assumed at 1315 from Brenda LUDWIG. Pt has done well during her recovery, she has been able to drink juice and water with no problem. Pt remained in SR with 1st deg AVB on monitor after cardioversion. repeat EKG was obtained. Pt is wide awake now and is amb with steady gait. IV is dc'd with cath intact, dressing applied. Hydrocortisone cream was applied to skin when large patches were placed. Skin is not irritated now, but pt reports these areas will become very itchy. I reviewed dc/rx and fu istructions with patient and . no concerns at time of departure. Pt is escorted to exit via wheelchair.
== END 2021-08-22 16:22 | disposition home or self-care (01) ==
LOC: COL.CAR 10:37
PROVIDERS: Internal Medicine Cardiovascular Disease
DX: I48.0 Paroxysmal atrial fibrillation (principal); J44.9 Chronic obstructive pulmonary disease, unspecified; I25.10 Atherosclerotic heart disease of native coronary artery without angina pectoris; I65.29 Occlusion and stenosis of unspecified carotid artery; I08.1 Rheumatic disorders of both mitral and tricuspid valves; I50.9 Heart failure, unspecified; I11.0 Hypertensive heart disease with heart failure; K74.60 Unspecified cirrhosis of liver; E78.2 Mixed hyperlipidemia; E66.9 Obesity, unspecified; G47.33 Obstructive sleep apnea (adult) (pediatric); I27.20 Pulmonary hypertension, unspecified; Z68.36 Body mass index [BMI] 36.0-36.9, adult; Z95.818 Presence of other cardiac implants and grafts; Z99.89 Dependence on other enabling machines and devices; Z90.49 Acquired absence of other specified parts of digestive tract; Z79.01 Long term (current) use of anticoagulants; Z85.038 Personal history of other malignant neoplasm of large intestine; Z79.899 Other long term (current) drug therapy; Z87.891 Personal history of nicotine dependence; Z80.3 Family history of malignant neoplasm of breast
CPT/HCPCS: J2704; J7120

== ENCOUNTER 2021-11-10 07:32 | Day surgery (SDC) | payer MEDICARE, BC ==
[~2021-11-10] VITALS: Ht 157.5 cm; Wt 90.4 kg
[~2021-11-10 07:32] MED LIST changes: +COMPLETE MULTI1 TAB PO; +ELDERBERRY PO; +FLONASE NASAL S16 GM NS; +VTAMINC250TA PO; +ZINC LOZENGES1 LOZ PO
[2021-11-10 08:36] LABS: HEMATOCRIT 46.3 % (37.0-47.0); HEMOGLOBIN 15.4 g/dl (12.5-16.0); MEAN CELL VOLUME 96 fl (80.0-100.0); MEAN CORPUSCULAR HEMOGLOBIN 32 pg (27-31); MEAN CORPUSCULAR HGB CONC 33 g/dl (33.0-37.0); MEAN PLATELET VOLUME 9.4 fl (7.4-10.4); PLATELET COUNT 254 K/mm3 (130-400); RED BLOOD COUNT 4.81 M/mm3 (4.10-5.30); REDCELL DISTRIBUTION WIDTH-CV 13.7 % (11.5-14.5)
[2021-11-10 08:43] LABS: INR 1.5 (0.8-3.0); PROTHROMBIN TIME 16.5 SECONDS (9.7-12.8)
[2021-11-10 08:45] LABS: PARTIAL THROMBOPLASTIN TIME 74.7 SECONDS (26.0-37.0)
[2021-11-10 08:52] LABS: CALCIUM 9.5 mg/dL (8.4-10.2); CREATININE, serum 1.35 mg/dL (0.57-1.11); MAGNESIUM 1.9 mg/dL (1.6-2.6); POTASSIUM 4.7 mmol/L (3.5-4.5)
[2021-11-10] MEDS ORDERED: CORDARONE200 MG/TAB PO (08:54)
[2021-11-10] MEDS ORDERED: LOPRESSOR 550 MG/TAB PO (08:55)
[2021-11-10] MEDS ORDERED: PRADAXA 150MG150 MG PO (08:57)
[2021-11-10 09:12] LABS: THYROID STIMULATING HORMONE 4.977 uIU/mL (0.350-4.940)
[2021-11-10] MEDS ORDERED: VTAMINC250TA PO (09:12)
[2021-11-10] MEDS ORDERED: MAGNESIUM500 MG PO (09:13)
[2021-11-10 09:15] VITALS: BP 142/81; PULSE 62
[2021-11-10 09:18] VITALS: BP 131/48; PULSE 59; TEMP 98.2
[2021-11-10 09:20] VITALS: BP 124/81; PULSE 61
[2021-11-10 09:30] VITALS: BP 132/76; PULSE 61
[2021-11-10 09:45] VITALS: BP 136/81; PULSE 63
[2021-11-10 10:00] VITALS: BP 135/70; PULSE 62
--- NOTE | 2021-11-10 10:08 | NUR ---
Discharge instructions given to pt.Pt verbalizes understanding.INT removed,catheter tip intact.
== END 2021-11-10 11:03 ==
LOC: COL.CAR 07:32
PROVIDERS: Internal Medicine Cardiovascular Disease
DX: I48.0 Paroxysmal atrial fibrillation (principal); I10 Essential (primary) hypertension; I27.20 Pulmonary hypertension, unspecified; I07.1 Rheumatic tricuspid insufficiency; I65.21 Occlusion and stenosis of right carotid artery; I25.10 Atherosclerotic heart disease of native coronary artery without angina pectoris; J44.9 Chronic obstructive pulmonary disease, unspecified; E78.5 Hyperlipidemia, unspecified; E78.2 Mixed hyperlipidemia; E66.9 Obesity, unspecified; G47.33 Obstructive sleep apnea (adult) (pediatric); Z90.49 Acquired absence of other specified parts of digestive tract; Z90.710 Acquired absence of both cervix and uterus; Z99.89 Dependence on other enabling machines and devices; Z79.899 Other long term (current) drug therapy; Z79.82 Long term (current) use of aspirin; Z87.891 Personal history of nicotine dependence; Z68.35 Body mass index [BMI] 35.0-35.9, adult; Z95.828 Presence of other vascular implants and grafts; Z79.01 Long term (current) use of anticoagulants
CPT/HCPCS: J2704; J7120

== ENCOUNTER 2022-02-15 15:09 | Inpatient (IN) | payer MEDICARE, BC ==
[~2022-02-15] VITALS: Ht 157.5 cm; Wt 92.2 kg
[2022-02-15 15:29] LABS: BASO % 0.4 % (0.0-2.0); EOS # 0.1 K/mm3 (0.0-0.7); EOS % 1.3 % (0.0-4.0); GRAN # 6.5 K/mm3 (1.4-6.5); GRAN % 67.1 % (42.2-75.2); HEMATOCRIT 40.6 % (37.0-47.0); HEMOGLOBIN 13.4 g/dl (12.5-16.0); LYMPH # 2.2 K/mm3 (1.2-3.4); LYMPH % 22.4 % (20.0-51.0); MEAN CELL VOLUME 94 fl (80.0-100.0); MEAN CORPUSCULAR HEMOGLOBIN 31 pg (27-31); MEAN CORPUSCULAR HGB CONC 33 g/dl (33.0-37.0); MEAN PLATELET VOLUME 10.4 fl (7.4-10.4); MONO # 0.8 K/mm3 (0.1-0.6); MONO % 8.5 % (1.7-9.3); PLATELET COUNT 275 K/mm3 (130-400); RED BLOOD COUNT 4.31 M/mm3 (4.10-5.30); REDCELL DISTRIBUTION WIDTH-CV 14.6 % (11.5-14.5)
[2022-02-15 15:45] LABS: ALBUMIN 4.1 gm/dL (3.4-4.8); BILIRUBIN,TOTAL 0.7 mg/dL (0.2-1.2); CALCIUM 9.1 mg/dL (8.4-10.2); CREATININE, serum 1.36 mg/dL (0.57-1.11); POTASSIUM 4.3 mmol/L (3.5-4.5); TOTAL PROTEIN 7.5 gm/dL (6.2-8.1)
[2022-02-15 15:50] LABS: TROPONIN-I 0.014 ng/mL (0.00-0.033)
[2022-02-15 17:00] VITALS: BP 131/47; PULSE 59; TEMP 97.8
[2022-02-15] MEDS ORDERED: TOPROL XL 50MG50 MG PO (17:36)
[2022-02-15 20:00] VITALS: BP 113/48; PULSE 60; TEMP 99.6
[2022-02-15 23:51] VITALS: BP 110/42; PULSE 59; TEMP 98.9
[2022-02-16] VITALS (8 sets, daily range): BP systolic 103–141; BP diastolic 33–65; PULSE 54–67; TEMP 97.9–98.5
[2022-02-16 06:08] LABS: POTASSIUM 4.3 mmol/L (3.5-4.5)
[2022-02-16 06:31] LABS: CALCIUM 9.2 mg/dL (8.4-10.2); CREATININE, serum 1.01 mg/dL (0.57-1.11)
[2022-02-16 06:40] LABS: TSH w REFLEX 5.675 uIU/mL (0.350-4.940)
[2022-02-17 03:59] VITALS: BP 114/36; PULSE 57; TEMP 98.3
[2022-02-17 06:11] VITALS: BP 147/54; PULSE 61
[2022-02-17] MEDS ORDERED: MELATIN 3 MG-11 TAB PO (08:37)
[2022-02-17 08:51] VITALS: BP 123/43; PULSE 62; TEMP 98
== END 2022-02-17 10:45 | disposition home or self-care (01) | DRG 309 ==
LOC: COL.ER 15:09 → SURG 15:58
PROVIDERS: Emergency Medicine; ADMIT Internal Medicine
DX: I48.0 Paroxysmal atrial fibrillation (principal); N17.9 Acute kidney failure, unspecified; E78.5 Hyperlipidemia, unspecified; I25.10 Atherosclerotic heart disease of native coronary artery without angina pectoris; I27.20 Pulmonary hypertension, unspecified; J44.9 Chronic obstructive pulmonary disease, unspecified; E66.9 Obesity, unspecified; G47.33 Obstructive sleep apnea (adult) (pediatric); E11.9 Type 2 diabetes mellitus without complications; I50.9 Heart failure, unspecified; I11.0 Hypertensive heart disease with heart failure; E04.1 Nontoxic single thyroid nodule; G47.00 Insomnia, unspecified; I08.1 Rheumatic disorders of both mitral and tricuspid valves; R00.1 Bradycardia, unspecified; Z79.82 Long term (current) use of aspirin; Z68.37 Body mass index [BMI] 37.0-37.9, adult
CPT/HCPCS: 99223-AI; 99232-AI; 99239; J7030

== ENCOUNTER 2022-03-30 03:44 | Inpatient (IN) | payer MEDICARE, BC ==
[~2022-03-30] VITALS: Ht 154.9 cm; Wt 84.0 kg
[~2022-03-30 03:44] MED LIST changes: +MELATIN 3 MG-11 TAB PO; +TOPROL XL 50MG50 MG PO
[2022-03-30 04:36] LABS: BASO % 0.4 % (0.0-2.0); EOS % 0.3 % (0.0-4.0); GRAN # 8.3 K/mm3 (1.4-6.5); GRAN % 75.9 % (42.2-75.2); HEMATOCRIT 37.7 % (37.0-47.0); HEMOGLOBIN 12.5 g/dl (12.5-16.0); LYMPH # 1.9 K/mm3 (1.2-3.4); LYMPH % 17.8 % (20.0-51.0); MEAN CELL VOLUME 95 fl (80.0-100.0); MEAN CORPUSCULAR HEMOGLOBIN 32 pg (27-31); MEAN CORPUSCULAR HGB CONC 33 g/dl (33.0-37.0); MEAN PLATELET VOLUME 10.3 fl (7.4-10.4); MONO # 0.6 K/mm3 (0.1-0.6); MONO % 5.2 % (1.7-9.3); PLATELET COUNT 193 K/mm3 (130-400); RED BLOOD COUNT 3.97 M/mm3 (4.10-5.30); REDCELL DISTRIBUTION WIDTH-CV 14.4 % (11.5-14.5)
[2022-03-30 04:41] LABS: ALBUMIN 3.6 gm/dL (3.4-4.8); BILIRUBIN,TOTAL 0.6 mg/dL (0.2-1.2); CALCIUM 9.3 mg/dL (8.4-10.2); CREATININE, serum 0.83 mg/dL (0.57-1.11); POTASSIUM 3.4 mmol/L (3.5-4.5)
[2022-03-30 09:02] VITALS: BP 154/59; PULSE 74; TEMP 97.7
[2022-03-30] MEDS ORDERED: SELENIUM200 MC5 PO (09:32)
[2022-03-30] MEDS ORDERED: KLOR-CON SPRIN10 MEQ PO (09:34)
[2022-03-30] MEDS ORDERED: LASIX 40MG TABL40 MG PO (09:35)
--- NOTE | 2022-03-30 10:59 | NUR ---
PATIENT ARRIVED FROM ED IN A GREAT DEAL OF PAIN. UNABLE TO TURN AND REPOSITION. SLID PATIENT WITH 3 STAFF TO BED, PATIENT HIP RAISE TO BEDPAN. UNABLE TO VOID. VERBAL ORDER TO STRAIGHT CATH ONCE. 725 OUT OF CLEAR YELLOW URINE. PER PATIENT, CUT HER GOWN OFF TO REPLACE WITH HOSPITAL YELLOW GOWN. PATIENT LOG ROLLED.
[2022-03-30 11:10] VITALS: BP 142/51; PULSE 68; TEMP 97.1
--- NOTE | 2022-03-30 12:00 | NUR ---
Cassandra: No Buddhism Preference Situation: Export Freight Manager went to room on rounds Background: PT was not feeling well Assessment: PT appreciated visit Recommendation: Export Freight Manager will follow up as needed
--- NOTE | 2022-03-30 12:52 | NUR ---
SW met with patient to complete intake and discuss discharge plan. Patient reports that she lives at home with her long time partner Oni [phone]. She reoports to being fully independent with her ADL's and does not utilize any DME to assist with mobility. Patient is on [place] oxygen for PM use that is supplied through [facility]. PCP is Dr. Robertson and she utilizes [employer] for medications needs with no cost difficulty. Patient reports that she does no have a DPOA-HC established and is not interested in creating one at this time. At the time of interaction, patient was having episodes of emesis stating the nausea medications she had been given wasn't working. Notified patient's RN. Discharge plan: Home
[2022-03-30 15:22] VITALS: BP 108/78; PULSE 71; TEMP 98
--- NOTE | 2022-03-30 19:07 | NUR ---
Patient had multiple episodes of emisis today after IV morphine. Reported to provider, pain meds switched and iv antiemitics given. Patient rested comfortably afterwards. Patient compliant with IS therapy. No other significant events following.
[2022-03-30 20:42] VITALS: BP 135/35; PULSE 78; TEMP 99
--- NOTE | 2022-03-30 23:28 | NUR ---
CONTINUING TO ENCOURAGE AMBULATION, PROVIDING PRN PAIN MEDICATION NEEDED, PT/OT TO WORK WITH PATIENT. PATIENT TO USE WALKER AND BSC FOR BOWEL AND BLADDER ELIMINATION. ENCOURAGING INCENTIVE SPIROMETER THROUGHOUT SHIFT WELL. PATIENT REMAINS ON STRICT I AND O. PENDING VOID MAY HAVE TO BLADDER SCAN PATIENT IF UNABLE TO VOID.
[2022-03-30 23:48] VITALS: BP 138/46; PULSE 68; TEMP 98.5
[2022-03-31] VITALS (7 sets, daily range): BP systolic 125–155; BP diastolic 38–60; PULSE 76–83; TEMP 97.7–98.4
--- NOTE | 2022-03-31 02:39 | NUR ---
NOTIFIED HOSPITALIST OF PATIENT HAVING EXTREME PAIN WHEN TURNING AND REPOSITIONING PATIENT IN BED. TECH AND THIS NURSE WAS ASSISTING PATIENT TO BEDPAN, WHICH PATIENT VOIDED 150CC AND INCONTINENCE MEDIUM AMOUNT ON DANTE. PATIENT WAS IN SEVERE PAIN SHIVERING, AFEBRILE 98.1 ORAL. HOSPITALIST INCREASED DOSE TO PRN FENTANYL. ALSO SHOWED HOSPITALIST BRUSING TO L SIDE OF ABD AREA, AND BRUISING TO COCCYX. REPOSITIONED PATIENT TO R SIDE WITH PILLOWS. PUREWIC IN PLACE TO ASSIST WITH BLADDER ELIMINATION.
--- NOTE | 2022-03-31 05:13 | NUR ---
ASSISTED PATIENT TO BATHROOM AROUND MIDNIGHT VOIDED, PATIENT STAND BY ASSIST. STARTED ON HEPARIN SUBQ FOR VTE. NO PAIN NOTED NO C/O DIZZINESS WHILE AMBULATING TO BATHROOM. WILL CONTINUE TO MONITOR. URINE NEGATIVE, PENDING ECHO THIS AM. CALL LIGHT WITHIN REACH WILL CONTINUE TO MONITOR.
--- NOTE | 2022-03-31 05:17 | NUR ---
PATIENT SLEEPING AT THIS TIME, PUREWIC WORKING EFFECTIVELY PATIENT HAVING URINARY OUTPUT. PROVIDED FENTANYL PRN AROUND 0400 EFFECTIVE PATIENT SLEEPING COMFORTABLY. WILL CONTINUE TO MONITOR AND MANAGE PAIN, TURNING AND REPOSITIONING TOLERATED.
[2022-03-31 06:49] LABS: BASO % 0.3 % (0.0-2.0); EOS % 0.4 % (0.0-4.0); GRAN # 6.9 K/mm3 (1.4-6.5); GRAN % 77.5 % (42.2-75.2); LYMPH # 1.3 K/mm3 (1.2-3.4); LYMPH % 14.1 % (20.0-51.0); MEAN CELL VOLUME 97 fl (80.0-100.0); MEAN CORPUSCULAR HEMOGLOBIN 32 pg (27-31); MEAN CORPUSCULAR HGB CONC 33 g/dl (33.0-37.0); MEAN PLATELET VOLUME 10.8 fl (7.4-10.4); MONO # 0.7 K/mm3 (0.1-0.6); MONO % 7.5 % (1.7-9.3); PLATELET COUNT 179 K/mm3 (130-400); RED BLOOD COUNT 4.13 M/mm3 (4.10-5.30); REDCELL DISTRIBUTION WIDTH-CV 14.7 % (11.5-14.5)
[2022-03-31 08:19] LABS: CALCIUM 9.4 mg/dL (8.4-10.2); CREATININE, serum 0.93 mg/dL (0.57-1.11); MAGNESIUM 2.1 mg/dL (1.6-2.6); POTASSIUM 4.7 mmol/L (3.5-4.5)
--- NOTE | 2022-03-31 08:23 | NUR ---
Patient prescribed antineoplastic/chemotherapy agent: anastrazole. Staff to follow chemo precautions when handling stool. This is on an ongoing basis as patient is prescribed this medication daily. Notified care team and placed sign outside patient room.
--- NOTE | 2022-03-31 11:12 | NUR ---
PATIENT CONTINUES TO COMPLAIN OF FREQUENT PAIN IN LEFT SIDE AND SACRUM REGION. BRUISING NOTED TO SACRUM. A&O X4. CONTINENT OF B/B. 2 ASSIST FOR TRANSFERS. WALKER TO AMBULATION. PATIENT TO POSSIBLE TRANSFER TO [facility] FOR FURTHER PT/OT SERVICES. ABLE TO COMPLETE MOST ADLS INDEPENDENTLY. MINIMAL ASSIST WITH DRESSING. FEEDS SELF, TAKES MEDS WHOLE.
--- NOTE | 2022-03-31 13:00 | NUR ---
FARIBA met with patient to discuss the need for skilled therapy. Patient is agreeable to this plan. Discussed possible facilities in the area that she could do therapy at and would like referrals sent to the three [facility]. Referral also placed with [facility]. Referrals faxed to [facility] and [facility]. DIscharge plan: SNF vs. [facility]- Referrals pending
--- NOTE | 2022-03-31 15:35 | NUR ---
After collaboration with the hospitalist and [facility] instructional support services director has been determined that the patient would not be a good a good candidate for [facility]. SNF referrals still stand and are pending.
--- NOTE | 2022-03-31 16:05 | NUR ---
Evelyne from [facility] states that they are able to acceot this patient as long as her pain was controlled orally before discharge. Hasmukh with [facility] states they are able to clinically accept this patient once she is ready for discharge.
[2022-04-01 03:34] VITALS: BP 119/40; PULSE 67; TEMP 98
--- NOTE | 2022-04-01 06:14 | NUR ---
ASSESSMENT COMPLETE FOR THIS SHIFT. PT SITTING UP IN BED. PT COMPLAINED OF BACK/RIB PAIN. PT REQUESTED AND RECIEVED FENTANYL FOR PAIN. PT FELT THE FENTANYL RELIEVED HER PAIN. PT DENIED PALPITATIONS, N,V,D, SOB OR DIZZINESS. PT REFUSED HER NIGHT TIME MEDS BECAUSE SHE SAID HER DAYSHIFT MEDS WERE JUST LEFT ON HER BEDSIDE TABLE AND SHE DIDN'T KNOW WHAT SHE TOOK. I APOLOGIZED TO PT, THAT THAT HAPPEN TO HER. I AGAIN EXPLAINED WHAT MEDS I WAS GIVING AND WHY. PT STILL REFUSED ALL BUT HER PAIN MEDS. OTHER THAN ASKING FOR HELP TO THE BEDSIDE COMMODE AND PAIN MEDICATION, PT EXPRESSED NO OTHER NEEDS AT THIS TIME. CALL LIGHT WITHIN REACH.
[2022-04-01 08:04] VITALS: BP 143/44; PULSE 82; TEMP 98.1
--- NOTE | 2022-04-01 09:43 | NUR ---
PATIENT ON SCHEDULED PAIN MEDS Q3H. VERY ALERT TO PAIN MED SCHEDULE. HIGH PAIN SCORES. 8(10). AMBULATED TO BSC AND IN HALLWAY WITH THERAPY, ONLY AFTER PAIN MED ADMINISTRATION. C/O OF CONSITPATION, CONFERRED WITH PROVIDER FOR SOFTENERS AND LAXATIVES. 3L O2. PLAN FOR [facility]. ALSO REQUEST TO TRANSITION TO [facility] P[facility] OF IV.
[2022-04-01 12:00] VITALS: BP 116/43; PULSE 73; TEMP 97.8
[2022-04-01 17:45] VITALS: BP 130/52; PULSE 77; TEMP 97.9
--- NOTE | 2022-04-01 18:32 | NUR ---
Report recieved from VANI Schmitt. PRN pain medication given once for 10/10 sharp pain in left side. Patient currently on 3L of O2 via nasal cannula. Denies any further pain, discomfort, SOA, or further needs at this time. Call light in reach. VSS. Patient A&O. Fall precautions in place .
[2022-04-01 20:50] VITALS: BP 144/57; PULSE 82; TEMP 98.6
[2022-04-02 00:10] VITALS: BP 109/49; PULSE 72; TEMP 99
[2022-04-02 04:10] VITALS: BP 109/49; PULSE 73; TEMP 99
[2022-04-02 05:54] LABS: BASO % 0.4 % (0.0-2.0); EOS # 0.2 K/mm3 (0.0-0.7); EOS % 1.9 % (0.0-4.0); GRAN # 5.3 K/mm3 (1.4-6.5); GRAN % 67.6 % (42.2-75.2); HEMOGLOBIN 11.6 g/dl (12.5-16.0); LYMPH # 1.7 K/mm3 (1.2-3.4); LYMPH % 21.5 % (20.0-51.0); MEAN CELL VOLUME 100 fl (80.0-100.0); MEAN CORPUSCULAR HEMOGLOBIN 32 pg (27-31); MEAN CORPUSCULAR HGB CONC 32 g/dl (33.0-37.0); MEAN PLATELET VOLUME 10.4 fl (7.4-10.4); MONO # 0.6 K/mm3 (0.1-0.6); MONO % 8.2 % (1.7-9.3); PLATELET COUNT 175 K/mm3 (130-400); RED BLOOD COUNT 3.64 M/mm3 (4.10-5.30); REDCELL DISTRIBUTION WIDTH-CV 14.6 % (11.5-14.5)
[2022-04-02 06:24] LABS: CALCIUM 8.9 mg/dL (8.4-10.2); CREATININE, serum 0.86 mg/dL (0.57-1.11); MAGNESIUM 1.9 mg/dL (1.6-2.6); POTASSIUM 4.3 mmol/L (3.5-4.5)
[2022-04-02 06:25] LABS: HEMATOCRIT 36.2 % (37.0-47.0)
--- NOTE | 2022-04-02 06:25 | NUR ---
ASSESSMENT COMPLETE FOR THIS SHIFT. PT RESTING IN BED WATCHING TV. PT COMPLAINED OF RIB PAIN. PT REQUESTED PAIN ROXICODONE AND TYLENOL A FEW TIMES THIS SHIFT. PT GIVEN PAIN MEDS. PT FELT THEIR WERE EFFECTIVE ONLY FOR A SHORT TIME. PT SEEMED TO GET UP BETTER TO THE BEDSIDE COMMODE THEN YESTERDAY. PT EXPRESSED NO OTHER NEEDS AT THIS TIME. CALL LIGHT WITHIN REACH.
[2022-04-02 08:00] VITALS: BP 138/46; PULSE 80; TEMP 98.6
[2022-04-02 11:13] VITALS: BP 125/50; PULSE 77; TEMP 98.3
--- NOTE | 2022-04-02 11:19 | NUR ---
Magaly ECKERT informs this Paper Bag Machine Operator that patient is ready to discharge, and her pain is now controlled by oral medication. Paper Bag Machine Operator met with patient to identify her preference, noting two placement referrals pending. Patient, Apple, is alert and oriented and aware of plan; she prefers to go to [facility]. She states she has already notified her research food technologist Oni, and her daughter Giovanna of her plan to discharge today to [facility]. Giovanna is coming up to the hospital today to visit. Paper Bag Machine Operator contacted [facility] and spoke to Evelyne, who confirms plan of care and requests clinical updates to determine acceptance for admission to SNF today. Clinical updates faxed to [facility] per request. Social Work confirms plan of care with Janna LUDWIG. *Discharge plan: Awaiting acceptance and transfer today to [facility]*
--- NOTE | 2022-04-02 12:26 | NUR ---
Scheduled medications given. Shift assessment preformed. Patient given scheduled tylenol given. PRN oxy given for left side pain. VSS. Patient A&O. Currently requiring 3L of O2 via nasal cannula. Patient is 1 assist with walker to bathroom. Has been able to ambulate short distances in the hallway. Pillow being used to splint left side. Lidocaine patch in place. Patient denies any further pain, discomofort, SOA, or further needs at this time. Call light in reach. Fall precautions in place.
[2022-04-02] MEDS ORDERED: IPRATROPIUM BROM3 M1 IH (12:32)
[2022-04-02] MEDS ORDERED: TYLENOL 500MG500 MG PO (12:33)
[2022-04-02] MEDS ORDERED: SENEXON-S 50-81 EACH PO (12:34)
[2022-04-02] MEDS ORDERED: COLACE 100100 MG/CAP PO (12:34)
--- NOTE | 2022-04-02 12:34 | NUR ---
Novelties Sales Representative followed up with Jessica at [facility]; documentation faxed has been reviewed. A Covid-19 test is requested, and order for incentive barometer. Confirmed pharmacy [facility] out of [facility]. Transportation is available at 2:00. This Novelties Sales Representative updated Magaly ECKERT and Janna RN; confirmed orders as requested. Jessica, Kimberly, is updated on incentive barometer order, and will set up transport for 2:00. Does request Covid test results and discharge paperwork faxed when complete. Patient updated; clinicals faxed as requested. *Discharge plan: To [facility] at 2:00*
[2022-04-02] MEDS ORDERED: FENTANYL 12MCG TD (12:35)
[2022-04-02] MEDS ORDERED: ROXICODONE 55 MG/TAB PO (12:35)
[2022-04-02 13:03] VITALS: BP 125/50; PULSE 77; TEMP 98.3
--- NOTE | 2022-04-02 14:55 | NUR ---
Patient deemed fit for discharge. IV DCd, catheter intact, no signs of phlebitis. Patient denies any further needs at this time. Report called to VANI Doyle at [facility]. Patient escorted from building via wheelchair by [facility] staff. VSS. Patient A&O.
== END 2022-04-02 14:45 | DRG 183 ==
LOC: COL.ER 03:44 → MEDICAL 06:04
PROVIDERS: Emergency Medicine; Physician Assistant; ADMIT Internal Medicine
DX: S22.42XA Multiple fractures of ribs, left side, initial encounter for closed fracture (principal); J96.01 Acute respiratory failure with hypoxia; I25.10 Atherosclerotic heart disease of native coronary artery without angina pectoris; I65.29 Occlusion and stenosis of unspecified carotid artery; K74.60 Unspecified cirrhosis of liver; I07.1 Rheumatic tricuspid insufficiency; I11.0 Hypertensive heart disease with heart failure; G47.33 Obstructive sleep apnea (adult) (pediatric); E78.5 Hyperlipidemia, unspecified; E66.9 Obesity, unspecified; I50.9 Heart failure, unspecified; I48.0 Paroxysmal atrial fibrillation; E11.9 Type 2 diabetes mellitus without complications; R11.2 Nausea with vomiting, unspecified; T40.2X5A Adverse effect of other opioids, initial encounter; J44.9 Chronic obstructive pulmonary disease, unspecified; S70.02XA Contusion of left hip, initial encounter; I27.20 Pulmonary hypertension, unspecified; W01.0XXA Fall on same level from slipping, tripping and stumbling without subsequent striking against object, initial encounter; Y93.89 Activity, other specified; Y92.091 Bathroom in other non-institutional residence as the place of occurrence of the external cause; Z20.822 Contact with and (suspected) exposure to COVID-19; Z99.81 Dependence on supplemental oxygen; Z79.01 Long term (current) use of anticoagulants; Z90.49 Acquired absence of other specified parts of digestive tract; Z87.891 Personal history of nicotine dependence; Z90.711 Acquired absence of uterus with remaining cervical stump; Z90.12 Acquired absence of left breast and nipple; Z79.82 Long term (current) use of aspirin; Z88.1 Allergy status to other antibiotic agents; Z85.118 Personal history of other malignant neoplasm of bronchus and lung; Z68.32 Body mass index [BMI] 32.0-32.9, adult
CPT/HCPCS: 99223-AI; 99231-AI; 99232-AI; 99239; A4314; A9284; J1815; J2270; J2405; J2550; J3010; J7030; Q9967

== ENCOUNTER → 2022-12-28 | Outpatient (CLI) | payer MEDICARE, BC ==
[~2022-12-28] MED LIST changes: +COLACE 100100 MG/CAP PO; +FENTANYL 12MCG TD; +IPRATROPIUM BROM3 M1 IH; +KLOR-CON SPRIN10 MEQ PO; +ROXICODONE 55 MG/TAB PO; +SENEXON-S 50-81 EACH PO; +TYLENOL 500MG500 MG PO
== END ==
LOC: MC.RAD 10-19 13:45
DX: Z12.31 Encounter for screening mammogram for malignant neoplasm of breast (principal)

== ENCOUNTER → 2024-01-15 | Outpatient (CLI) | payer MEDICARE, BC ==
[2006-10-16 14:49] VITALS: BP 129/60; PULSE 69; TEMP 96.8
[~2024-01-15] MED LIST changes: +CALCIUM-MAGNES1 EAC1 PO; +ELIQUIS 5MG PO; +IRON TABLETS325 MG PO; +MILK THISTLE150 MG PO; +MOBIC 7.5MG7.5 MG PO; +PROTONIX 40MG T40 MG PO; +VANTIN 200200 MG/TAB PO; +VITAMINC1000TA PO
== END ==
LOC: MC.RAD 10:45
DX: Z12.31 Encounter for screening mammogram for malignant neoplasm of breast (principal)